=== PATIENT | male | born 1990 | race Caucasian/White ===

== ENCOUNTER 2017-10-05 07:58 | Emergency (ER) | payer SELFPAY ==
[~2017-10-05] VITALS: Ht 170.2 cm; Wt 90.4 kg
[~2017-10-05 07:58] MED LIST: MEDROL DOSEPAK4 MG PO; NOHOMEMEDS; ROBITUSSIN AC,T10 ML PO; ZITHROMAX Z-PA250 MG PO; ZYRTEC10 M3 PO
[2017-10-05 09:09] LABS: HEMATOCRIT 40.5 % (38.0-50.0); HEMOGLOBIN 13.5 G/DL (12.5-16.6); MCHC 33.3 G/DL (30.0-36.0); PLATELET COUNT 196 K/uL (156-360); RBC DIS.WIDTH-CV 13.5 % (11.8-14.6); RBC DIS.WIDTH-SD 39.4 % (39-53); WHITE BLOOD COUNT 8.3 K/uL (4.1-10.2)
[2017-10-05 09:20] LABS: CHLORIDE 108 mEq/L (99-109); POTASSIUM 4.4 mEq/L (3.7-5.4); SODIUM 137 mEq/L (136-147)
[2017-10-05 09:21] LABS: MAGNESIUM 2.3 mg/dL (1.3-2.7)
[2017-10-05 09:22] LABS: GLUCOSE 101 mg/dL (70-99)
[2017-10-05 09:26] LABS: CREATININE 0.8 mg/dL (0.6-1.3); GFR ESTIMATE (CALCULATED) > 59 mL/min/ (58.99-99999)
[2017-10-05 09:27] LABS: UREA NITROGEN (BUN) 13 mg/dL (9-23)
[2017-10-05 09:30] LABS: TROP-I INTERPRETATION NEGATIVE; TROPONIN-I < 0.01 ng/mL (0.0-0.30)
[2017-10-05] MEDS ORDERED: FIORICET 50-301 EAC1 PO (12:42)
[2017-10-05 12:50] VITALS: BP 108/57
== END 2017-10-05 12:50 | disposition home or self-care (01) ==
LOC: EME 07:58
DX: R55 Syncope and collapse (principal); R51 Headache; I10 Essential (primary) hypertension; F32.9 Major depressive disorder, single episode, unspecified; F17.200 Nicotine dependence, unspecified, uncomplicated; Z91.14 Patient's other noncompliance with medication regimen
CPT/HCPCS: 70450; 71046; 80048; 83735; 84484; 85027; 93005; J2765; J7040

== ENCOUNTER → 2017-11-08 | Outpatient (CLI) | payer SELFPAY ==
[~2017-11-08] MED LIST changes: +FIORICET 50-301 EAC1 PO
== END | disposition home or self-care (01) ==
LOC: RAD 13:30
DX: I65.01 Occlusion and stenosis of right vertebral artery (principal)
CPT/HCPCS: 70544

== ENCOUNTER → 2017-11-11 | Outpatient (CLI) | payer SELFPAY | END | disposition home or self-care (01) | LOC: EEG 08:57 | DX: R51 Headache (principal); R55 Syncope and collapse | CPT/HCPCS: 95954 ==